=== PATIENT | female | born 1970 | race Caucasian/White ===

== ENCOUNTER → 2023-01-15 | Day surgery (SDC) | payer OTHER ==
[~2023-01-15] MED LIST: DIPRIVAN 200 MG/20 ML IV ONE; LIDOCAINE HCL 2% 100 MG/5 ML IJ ONE; Lactated Ringers 1,000 ML IV ONE
--- NOTE | 2023-01-15 20:49 | XRAY ---
Indication: Bilateral L4-S1 MBB. Intraoperative fluoroscopy provided for 11 seconds. Single digital spot image submitted for interpretation demonstrates posterior needle tips projecting over the expected left and right L4-S1 nerve roots. Correlate with intraoperative findings/report.
--- NOTE | 2023-01-16 08:42 | XRAY ---
11 seconds of fluoroscopy was used in surgery for a bilateral L4-S1 MBB.
== END | disposition home or self-care (01) ==
LOC: SDC-PAIN 15:39
PROVIDERS: ATTEND Psychiatry & Neurology Pain Medicine
DX: M47.816 Spondylosis without myelopathy or radiculopathy, lumbar region (principal); Z79.899 Other long term (current) drug therapy
CPT/HCPCS: 64493; 64494; 72020; 77002; J2704